=== PATIENT | female | born 1965 | race Caucasian/White ===

== ENCOUNTER 2020-09-23 14:03 | Inpatient (IN) | payer BC ==
--- NOTE | 2020-09-23 14:05 | EDM.PDOC ---
ED HPI GENERAL MEDICAL PROBLEM - General Chief Complaint: Cardiovascular Problem Stated Complaint: N/V,DIARRHEA Time Seen by Provider: 09/23/20 14:05 Source of Information: Reports: Patient, Family, Provider History Limitations: Reports: No Limitations - History of Present Illness INITIAL COMMENTS - FREE TEXT/NARRATIVE: Lidia, 54-year-old female, presents per private vehicle to the emergency department today accompanied by her daughter. Lidia was initially seen at the [facility] here in [place] by Kavita Suarez shortly prior to the arrival at the emergency department. Negative Covid test was obtained secondary of her symptoms. As Kavita entered the room for assessment recognized significant concerns for dehydration, hypotension, associated pallor and felt further work-up necessitated at the emergency department including fluid hydration. Pain he agreed to this and was transported by private vehicle with her daughter driving. Her symptoms developed on the leading to Sunday the and lasting until 21 September which included weakness, nausea with vomiting limiting her oral medication intake. This was also associated with diarrhea. She states there has been no vomiting since yesterday and abdominal discomfort has improved significantly but had what was seemingly a periumbilical region discomfort during the nausea and emesis, as well as diarrhea. She denies any nausea at this time with mild headache and chronic stiff neck which is not worse than usual. She denies any previous renal concerns. 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 (see below) (all home meds, but limited secondary of nause/vomiting) Right Abdomen Pain Score (Numeric/FACES): 4 - Related Data Allergies Allergy/AdvReac Type Severity Reaction Status Date / Time amoxicillin trihydrate Allergy Cannot Verified 09/23/20 14:14 [From Augmentin] Remember potassium clavulanate Allergy Cannot Verified 09/23/20 14:14 [From Augmentin] Remember Home Meds: Home Meds Escitalopram Oxalate 20 mg PO DAILY 11/15/17 [History] Pentosan Polysulfate Sodium [Elmiron] 100 mg PO TID 11/15/17 [History] amLODIPine Besylate [Amlodipine Besylate] 5 mg PO DAILY 11/15/17 [History] Baclofen 10 mg PO TID PRN 09/23/20 [History] Calcium Carbonate [Calcium] 600 mg PO BIDMEALS 09/23/20 [History] Cranberry 400 mg PO BID 09/23/20 [History] Cyanocobalamin (Vitamin B-12) [B-12] 1,000 mg PO DAILY 09/23/20 [History] Ergocalciferol (Vitamin D2) [Vitamin D2] 50,000 unit PO ASDIRECTED 09/23/20 [History] Esomeprazole [NexIUM] 20 mg PO DAILY 09/23/20 [History] Iron Polysaccharides Complex [Ferrex 150] 1 cap PO Q48H 09/23/20 [History] Levothyroxine Sodium [Levothyroxine] 137 mcg PO DAILY 09/23/20 [History] Lisinopril/Hydrochlorothiazide [Zestoretic 10-12.5 mg Tablet] 1 each PO BID 09/23/20 [History] buPROPion HCL [Wellbutrin Xl] 1 tab PO DAILY 09/23/20 [History] busPIRone [Buspar] 10 mg PO DAILY PRN 09/23/20 [History] hydrOXYzine HCL [Atarax] 25 mg PO QID PRN 09/23/20 [History] Past Medical History HEENT History: Reports: Impaired Vision Cardiovascular History: Reports: Heart Murmur, Hypertension Respiratory History: Reports: Other (See Below) (chronic low oxygen saturations) Gastrointestinal History: Reports: Other (See Below) (gastric bypass) Genitourinary History: Reports: UTI, Recurrent, Other (See Below) (chronic interstitial cystitis) 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: Musculoskeletal History: Reports: Back Pain, Chronic, Fibromyalgia Psychiatric History: Reports: Anxiety, Depression Endocrine/Metabolic History: Reports: Hypothyroidism Hematologic History: Reports: Anemia, B12 Deficiency Immunologic History: Reports: None - Past Surgical History HEENT Surgical History: Reports: Tonsillectomy GI Surgical History: Reports: Bariatric Procedure, Cholecystectomy, Other (See Below) Other GI Surgeries/Procedures: Gastric Bypass Female Surgical History: Reports: Breast Reduction, Tubal Ligation Musculoskeletal Surgical History: Reports: Other (See Below) Other Musculoskeletal Surgeries/Procedures:: Back surgery - Past Imaging History Past Imaging History: Reports: Xray Social & Family History - Family History Family Medical History: No Pertinent Family History - Tobacco Use Tobacco Use Within Last Twelve Months: No ED ROS GENERAL - Review of Systems Review Of Systems: Comprehensive ROS is negative, except as noted in HPI. ED EXAM, GENERAL - Physical Exam Exam: See Below Free Text/Narrative:: Alert, oriented, in mild distress. There is noted pallor with cool distal extremities both upper and lower. Poor saturation levels are achieved likely due to contributing factors including cold extremity. From wrist distally fingers and hand are cold bilateral with a adequate radial pulse. There is cool feet from the ankle/distal tib-fib into the feet with pulse faint but present. HEENT is negative discharge or deformity, PERRLA no icterus no injection, moist mucous membranes. Neck is tender to the muscular paraspinal region which she states is chronic in nature. I do not appreciate any carotid bruit. Thorax is overall clear with no wheezes nor crackles. Cardiac S1-S2 with a grade 2 systolic murmur best heard at the base and nonradiating. Abdomen has bowel sounds present with no specific tenderness or rebound tenderness to palpation. No flank pain. No pelvic pain to compression nor pain pressure over urinary bladder. Right lower extremity is cool distally with appropriate color and faint pulse no tenderness is noted. Left lower extremity has mildly tenderness to the calf and is cool distally with appropriate color and faint pulse, no noted swelling. #1 Interpretation EKG Date: 09/23/20 Time: 14:25 Rhythm: NSR Rate (Beats/Min): 100 [place]: Normal P-Wave: Present QRS: Normal ST-T: Normal QT: Normal Comparison: NA - No Prior EKG EKG Interpretation Comments: [facility] [id number] Failure to allow comparison. Course - Vital Signs Last Recorded V/S: Last Vital Signs Temp 97.1 F 09/23/20 14:05 Pulse 97 09/23/20 17:48 Resp 18 09/23/20 17:48 BP 118/65 09/23/20 17:48 Pulse Ox 97 09/23/20 17:48 - Orders/Labs/Meds Orders: Active Orders 24 hr Category Date Time Status Admission Status [Patient Status] [ADT] Routine ADT 09/23/20 18:57 Ordered Peripheral IV Care [RC] . DIRECTED Care 09/23/20 14:13 Active CULTURE URINE [RM] Urgent Lab 09/23/20 15:18 Received Ciprofloxacin in D5W [Cipro in D5W 400 MG/200 ML] 400 Med 09/23/20 18:37 Ordered mg Premix Bag 1 bag IV ONETIME Potassium Chloride [KCL in Water 20 MEQ/100 ML] 20 meq Med 09/23/20 18:04 Active Premix Bag 1 bag IV ONETIME Sodium Chloride 0.9% [Normal Saline] 1,000 ml Med 09/23/20 15:45 Active IV ASDIRECTED Sodium Chloride 0.9% [Saline Flush] Med 09/23/20 14:13 Active 10 ml FLUSH Q8HR PRN Peripheral IV Insertion Adult [OM.PC] Routine Oth 09/23/20 14:13 Ordered Code Status [Resuscitation Status] Stat Resus Stat 09/23/20 19:06 Ordered EKG 12 Lead [EK] Urgent Ther 09/23/20 14:11 Stop Req Medication Orders Sodium Chloride (Normal Saline) 1,000 mls @ 250 mls/hr IV ASDIRECTED [facility] Last Admin: 09/23/20 16:00 Dose: 250 mls/hr Documented by: BLAINE Potassium Chloride 20 meq/ (Premix) 100 mls @ 50 mls/hr IV ONETIME ONE Stop: 09/23/20 20:03 Last Admin: 09/23/20 18:10 Dose: 50 mls/hr Documented by: BLAINE Ciprofloxacin/Dextrose 400 mg/ (Premix) 200 mls @ 200 mls/hr IV ONETIME ONE Stop: 09/23/20 19:36 Sodium Chloride (Sodium Chloride 0.9% 10 Ml Syringe) 10 ml FLUSH Q8HR PRN PRN Reason: keep vein open Last Admin: 09/23/20 16:35 Dose: 10 ml Documented by: Admin: 09/23/20 14:57 Dose: 10 ml Documented by: BLAINE Labs: Laboratory Tests 09/23/20 09/23/20 09/23/20 Range/Units 14:10 14:10 14:10 WBC 24.59 H (5.00-10.00) 10^3/uL RBC 3.04 L (3.80-5.50) 10^6/uL Hgb 9.8 L (12.0-16.0) g/dL Hct 28.3 L (37.0-47.0) % MCV 93.1 H (82.0-92.0) fL MCH 32.2 H (27.0-31.0) pg MCHC 34.6 (32.0-36.0) g/dL RDW 14.4 (11.5-14.5) % Plt Count 434 H (150-400) 10^3/uL MPV 9.2 (7.4-10.4) fL Add Manual Diff Yes Neutrophils % (Manual) 87 H (50-70) % Band Neutrophils % 1 L (4-12) % Lymphocytes % (Manual) 1 L (20-40) % Monocytes % (Manual) 11 H (2-8) % Absolute Neutrophils 21.6392 Lymphocytes # (Manual) 0.2459 Monocytes # (Manual) 2.7049 Nucleated RBCs 1 D-Dimer, Quantitative 3410 H (<400) ng/mL Sodium 136 (136-145) mmol/L Potassium 2.1 L* (3.5-5.1) mmol/L Chloride 100 (98-107) mmol/L Carbon Dioxide 17.8 L (21.0-32.0) mmol/L Anion Gap 20.3 H (5-15) mmol/L BUN 23 H (7-18) mg/dL Creatinine 1.32 H (0.51-1.17) mg/dL Est Cr Clr Drug Dosing 38.50 mL/min Estimated GFR (MDRD) 42 mL/min Glucose 94 (70-140) mg/dL Lactic Acid (0.4-2.0) mmol/L Calcium 8.9 (8.7-10.3) mg/dL Total Bilirubin 0.6 (0.2-1.0) mg/dL AST 14 L (15-37) U/L ALT 14 (14-63) U/L Alkaline Phosphatase 99 (46-116) U/L Troponin I < 0.017 (0.000-0.056) ng/mL Total Protein 7.1 (6.4-8.2) g/dL Albumin 2.42 L (3.40-5.00) g/dL Amylase 54 (25-125) U/L Lipase 187 (73-393) U/L Specimen Type Urine Color Urine Appearance Urine pH Ur Specific [place] Urine Protein Urine Glucose (UA) Urine Ketones Urine Occult Blood Urine Nitrite Urine Bilirubin Urine Urobilinogen Ur Leukocyte Esterase U Hyaline Cast (Auto) Urine RBC Urine WBC Ur Epithelial Cells Other Crystals Amorphous Sediment Urine Bacteria Granular Casts (Auto) Urine Mucus Urine Other Urine Trichomonas Urine Yeast Urinalysis Comment 09/23/20 09/23/20 09/23/20 Range/Units 14:10 15:18 15:18 WBC (5.00-10.00) 10^3/uL RBC (3.80-5.50) 10^6/uL Hgb (12.0-16.0) g/dL Hct (37.0-47.0) % MCV (82.0-92.0) fL MCH (27.0-31.0) pg MCHC (32.0-36.0) g/dL RDW (11.5-14.5) % Plt Count (150-400) 10^3/uL MPV (7.4-10.4) fL Add Manual Diff Neutrophils % (Manual) (50-70) % Band Neutrophils % (4-12) % Lymphocytes % (Manual) (20-40) % Monocytes % (Manual) (2-8) % Absolute Neutrophils Lymphocytes # (Manual) Monocytes # (Manual) Nucleated RBCs D-Dimer, Quantitative (<400) ng/mL Sodium (136-145) mmol/L Potassium (3.5-5.1) mmol/L Chloride (98-107) mmol/L Carbon Dioxide (21.0-32.0) mmol/L Anion Gap (5-15) mmol/L BUN (7-18) mg/dL Creatinine (0.51-1.17) mg/dL Est Cr Clr Drug Dosing mL/min Estimated GFR (MDRD) mL/min Glucose (70-140) mg/dL Lactic Acid 1.6 (0.4-2.0) mmol/L Calcium (8.7-10.3) mg/dL Total Bilirubin (0.2-1.0) mg/dL AST (15-37) U/L ALT (14-63) U/L Alkaline Phosphatase (46-116) U/L Troponin I (0.000-0.056) ng/mL Total Protein (6.4-8.2) g/dL Albumin (3.40-5.00) g/dL Amylase (25-125) U/L Lipase (73-393) U/L Specimen Type Cancelled Urinvoid Urine Color Cancelled Ellis H Urine Appearance Cancelled Slightly cloudy H Urine pH Cancelled 6.0 Ur Specific [place] Cancelled 1.010 Urine Protein Cancelled 100 H Urine Glucose (UA) Cancelled 100 H Urine Ketones Cancelled Trace H Urine Occult Blood Cancelled Small H Urine Nitrite Cancelled Positive H Urine Bilirubin Cancelled Small H Urine Urobilinogen Cancelled 1.0 Ur Leukocyte Esterase Cancelled Small H U Hyaline Cast (Auto) Cancelled Urine RBC Cancelled 0-5 Urine WBC Cancelled >100 H Ur Epithelial Cells Cancelled Occasional Other Crystals Cancelled Amorphous Sediment Cancelled Urine Bacteria Cancelled Rare Granular Casts (Auto) Cancelled Urine Mucus Cancelled Urine Other Cancelled Urine Trichomonas Cancelled Urine Yeast Cancelled Urinalysis Comment Cancelled Meds: Medications Generic Name Dose Route Start Last Admin Trade Name Freq PRN Reason Stop Dose Admin Sodium Chloride 1,000 mls @ 250 mls/hr 09/23/20 15:45 09/23/20 16:00 Normal Saline IV 250 mls/hr ASDIRECTED YAW Administration Potassium Chloride 20 meq/ 100 mls @ 50 mls/hr 09/23/20 18:04 09/23/20 18:10 Premix IV 09/23/20 20:03 50 mls/hr ONETIME ONE Administration Ciprofloxacin/Dextrose 400 mg/ 200 mls @ 200 mls/hr 09/23/20 18:37 Premix IV 09/23/20 19:36 ONETIME ONE Sodium Chloride 10 ml 09/23/20 14:13 09/23/20 16:35 Sodium Chloride 0.9% 10 Ml Syringe FLUSH 10 ml Q8HR PRN Administration keep vein open Discontinued Medications Generic Name Dose Route Start Last Admin Trade Name Freq PRN Reason Stop Dose Admin Diatrizoate Meglum/Diatrizoate Sod 30 ml 09/23/20 17:12 09/23/20 18:09 Diatrizoate Meglumine/Diatrizoate Sodium 37% 30 Ml Bottle PO 09/23/20 17:13 30 ml ONETIME ONE Administration Sodium Chloride 1,000 mls @ 999 mls/hr 09/23/20 14:13 09/23/20 14:10 Normal Saline IV 09/23/20 15:13 999 mls/hr .BOLUS ONE Administration Potassium Chloride 20 meq/ 100 mls @ 50 mls/hr 09/23/20 14:52 09/23/20 15:02 Premix IV 09/23/20 16:51 50 mls/hr ONETIME ONE Administration Sodium Chloride 100 mls @ 200 mls/hr 09/23/20 15:45 09/23/20 17:09 Normal Saline IV 200 mls/hr ASDIRECTED YAW Administration Sodium Chloride 50 mls @ 200 mls/hr 09/23/20 17:15 09/23/20 18:09 Normal Saline IV 200 mls/hr ASDIRECTED YAW Administration Iopamidol 75 ml 09/23/20 15:42 09/23/20 17:09 Iopamidol 755 Mg/Ml 75 Ml Bottle IVPUSH 09/23/20 15:43 75 ml ONETIME ONE Administration Iopamidol 75 ml 09/23/20 17:12 09/23/20 18:09 Iopamidol 755 Mg/Ml 75 Ml Bottle IVPUSH 09/23/20 17:13 75 ml ONETIME ONE Administration Ketorolac Tromethamine 30 mg 09/23/20 14:54 09/23/20 14:56 Ketorolac 30 Mg/Ml Sdv IVPUSH 09/23/20 14:55 30 mg ONETIME ONE Administration Ketorolac Tromethamine Confirm 09/23/20 14:55 09/23/20 15:06 Ketorolac 30 Mg/Ml Sdv Administered 09/23/20 14:56 Not Given Dose 30 mg .ROUTE .STK-MED ONE Ondansetron HCl 8 mg 09/23/20 16:25 09/23/20 16:28 Ondansetron 4 Mg/2 Ml Sdv IVPUSH 09/23/20 16:26 8 mg ONETIME ONE Administration - Re-Assessments/Exams Free Text/Narrative Re-Assessment/Exam: 09/23/20 15:15 Significant improvement in color and heart rate coming down into the 90s after two thirds of the fluid bolus was given. We did discuss at that time elevated D-dimer with a white count elevated but no evidence on chest x-ray. I feel part of her white count elevation is hydration concentration status. Possibility with elevated D-dimer of pulmonary embolus contributing to this significant murmur today which she states had been discussed in the past but was proven to not exist. 09/23/20 15:46 Feeling better with improvement stabilized in color heart rate 90s blood pressure now in the 113/73 saturations maintaining 94% with a respiratory rate of 12 and nonlabored. Chest x-ray returns with no acute process. Awaiting report on CTA Free Text/Narrative Re-Assessment/Exam: 09/23/20 18:[address] findings for acute pyelonephritis with no evidence of obstruction or other complications. Will initiate antibiotic therapy and contact [facility] provider for admission status. 09/23/20 19:06 Discussion with Arie Knight nurse practitioner on-call for admission. Agrees to observation status for the aforementioned diagnosis of hypokalemia due to potassium loss likely due to her diarrhea, pyelonephritis with leukocytosis. Departure - Departure Time of Disposition: 19:10 Disposition: Refer to Observation Condition: Good Clinical Impression: Murmur, heart, Hypokalemia, Leukocytosis, Elevated d-dimer, Pyelonephritis Anemia Qualifiers: Anemia type: iron deficiency Iron deficiency anemia type: unspecified iron deficiency Qualified Code(s): D50.9 - Iron deficiency anemia, unspecified Calf pain Qualifiers: Laterality: left Qualified Code(s): M79.662 - Pain in left lower leg - Discharge Information *PRESCRIPTION DRUG MONITORING PROGRAM REVIEWED*: Not Applicable *COPY OF PRESCRIPTION DRUG MONITORING REPORT IN PATIENT YANI: Not Applicable Referrals: Cony Tamayo [employer]IO ELECTRONICS OFFICER [Primary Care Provider] - Kavita Suarez NP [Nurse Practitioner] - Forms: ED Department Discharge Additional Instructions: observation status with antibiotic and potassium recheck. Sepsis Event Note (ED) - Focused Exam Vital Signs: Vital Signs Temp Pulse Resp BP Pulse Ox 09/23/20 17:48 97 18 118/65 97 09/23/20 16:48 94 18 112/78 92 L 09/23/20 16:18 90 18 106/70 97 09/23/20 15:59 91 16 113/73 92 L 09/23/20 15:44 91 18 107/75 87 L 09/23/20 15:18 119/75 09/23/20 14:45 96 20 105/66 09/23/20 14:39 97 20 93/67 99 09/23/20 14:32 96 16 91/60 94 L 09/23/20 14:15 100 16 83/59 L 96 09/23/20 14:08 102 H 18 93/60 91 L 09/23/20 14:05 97.1 F 109 H 20 82/60 L 80 L ED Communication - ED Communication Date/Time Date: 09/23/20 Time Called: 19:00 - Discussed Case With (1) Discussed Case With (1): Admitting Provider Person/s Notified (1): Cony tamayo - Problem List & Annotations (1) Weakness SNOMED Code(s): 75919182 Code(s): R53.1 - WEAKNESS Status: Acute Priority: High Current Visit: Yes (2) Hypotensive episode SNOMED Code(s): 97358620 Code(s): I95.9 - HYPOTENSION, UNSPECIFIED Status: Acute Priority: High Current Visit: Yes (3) Oxygen desaturation SNOMED Code(s): 340553270 Code(s): R09.02 - HYPOXEMIA Status: Chronic Priority: Medium Current Visit: Yes Annotation/Comment:: Both Lidia and her daughter relate to chronic low pulse oximetry readings, typically low 90s would be average (4) Calf pain SNOMED Code(s): 912526764 Code(s): M79.669 - PAIN IN UNSPECIFIED LOWER LEG Status: Acute Priority: High Current Visit: Yes Qualifiers: Laterality: left Qualified Code(s): M79.662 - Pain in left lower leg (5) Hypokalemia SNOMED Code(s): 80938428 Code(s): E87.6 - HYPOKALEMIA Status: Acute Priority: High Current Visit: Yes (6) Leukocytosis SNOMED Code(s): 556996704, 621839951 Code(s): D72.829 - ELEVATED WHITE BLOOD CELL COUNT, UNSPECIFIED Status: Acute Current Visit: Yes (7) Elevated d-dimer SNOMED Code(s): 131477876 Code(s): R79.89 - OTHER SPECIFIED ABNORMAL FINDINGS OF BLOOD CHEMISTRY Status: Acute Priority: High Current Visit: Yes (8) Anemia SNOMED Code(s): 403570787 Code(s): D64.9 - ANEMIA, UNSPECIFIED Status: Chronic Priority: Medium Current Visit: Yes Qualifiers: Anemia type: iron deficiency Iron deficiency anemia type: unspecified iron deficiency Qualified Code(s): D50.9 - Iron deficiency anemia, unspecified (9) Murmur, heart SNOMED Code(s): 67082566 Code(s): R01.1 - CARDIAC MURMUR, UNSPECIFIED Status: Acute Current Visit: Yes (10) Pyelonephritis SNOMED Code(s): 76712866 Code(s): N12 - TUBULO-INTERSTITIAL NEPHRITIS, NOT SPCF ACUTE OR CHRONIC Status: Acute Priority: High Current Visit: Yes Annotation/Comment:: non- obstructive with no flank pain, significant WBC elevation. (11) Lab test negative for COVID-19 virus SNOMED Code(s): 7487660660975734 Code(s): Z20.822 - CONTACT WITH AND (SUSPECTED) EXPOSURE TO COVID-19 Status: Acute Current Visit: Yes - Problem List Review Problem List Initiated/Reviewed/Updated: Yes - My Orders Last 24 Hours: My Active Orders 09/23/20 14:11 EKG 12 Lead [EK] Urgent 09/23/20 14:13 Peripheral IV Care [RC] . DIRECTED Sodium Chloride 0.9% [Saline Flush] 10 ml FLUSH Q8HR PRN Peripheral IV Insertion Adult [OM.PC] Routine 09/23/20 15:18 CULTURE URINE [RM] Urgent 09/23/20 15:45 Sodium Chloride 0.9% [Normal Saline] 1,000 ml IV ASDIRECTED 09/23/20 18:04 Potassium Chloride [KCL in Water 20 MEQ/100 ML] 20 meq Premix Bag 1 bag IV ONETIME 09/23/20 18:37 Ciprofloxacin in D5W [Cipro in D5W 400 MG/200 ML] 400 mg Premix Bag 1 bag IV ONETIME 09/23/20 18:57 Admission Status [Patient Status] [ADT] Routine 09/23/20 19:06 Code Status [Resuscitation Status] Stat - Assessment/Plan Last 24 Hours: My Active Orders 09/23/20 14:11 EKG 12 Lead [EK] Urgent 09/23/20 14:13 Peripheral IV Care [RC] . DIRECTED Sodium Chloride 0.9% [Saline Flush] 10 ml FLUSH Q8HR PRN Peripheral IV Insertion Adult [OM.PC] Routine 09/23/20 15:18 CULTURE URINE [RM] Urgent 09/23/20 15:45 Sodium Chloride 0.9% [Normal Saline] 1,000 ml IV ASDIRECTED 09/23/20 18:04 Potassium Chloride [KCL in Water 20 MEQ/100 ML] 20 meq Premix Bag 1 bag IV ONETIME 09/23/20 18:37 Ciprofloxacin in D5W [Cipro in D5W 400 MG/200 ML] 400 mg Premix Bag 1 bag IV ONETIME 09/23/20 18:57 Admission Status [Patient Status] [ADT] Routine 09/23/20 19:06 Code Status [Resuscitation Status] Stat Plan: observation status with antibiotic and potassium recheck.
[2020-09-23] MEDS ORDERED: Sodium Chloride 0.9% 1,000 ML IV ONE (14:13)
[2020-09-23 14:45] LABS: ANION GAP 20.3 mmol/L (5-15); CHLORIDE,CL 100 mmol/L (98-107); SODIUM,NA 136 mmol/L (136-145)
[2020-09-23] MEDS ORDERED: Potassium Chloride 20 MEQ in Premix Bag 1 BAG IV ONE ×2 (14:52→18:04)
[2020-09-23] MEDS ORDERED: Ketorolac 30 MG/ML SDV IVPUSH ONE (14:54)
[2020-09-23] MEDS ORDERED: Ketorolac 30 MG/ML SDV ONE (14:55)
[2020-09-23] MEDS: Sodium Chloride 0.9% 10 ML Syringe FLUSH PRN ×2 (14:57→16:35)
[2020-09-23] MEDS ORDERED: Iopamidol 755 Mg/ML 75 ML Bottle IVPUSH ONE ×2 (15:42→17:12)
--- NOTE | 2020-09-23 15:42 | CR ---
[id number] RAD/RAD Chest PA or AP 1V EXAM: SINGLE VIEW CHEST. INDICATION: WEAKNESS DESATURATION COMPARISON: NO PREVIOUS SIMILAR EXAM IS AVAILABLE FINDINGS: The lungs are clear The cardiomediastinal contour is within normal limits The regional bones and soft tissues are unremarkable IMPRESSION: NO ACUTE PROCESS Cory Borrero MD 09/23/20 [id number] Thank you for allowing us to participate in the care of your patient.
[2020-09-23] MEDS ORDERED: Sodium Chloride 0.9% 100 ML IV SCH (15:45)
[2020-09-23] MEDS: Sodium Chloride 0.9% 1,000 ML IV SCH ×2 (16:00→22:05)
--- NOTE | 2020-09-23 16:03 | CT ---
[id number] CT/CTA Chest . Exam: CTA Chest Clinical Data: ELEVATED D-DIMER LOW OXYGEN SATURATION COMPARISON: CORRELATION IS MADE WITH THE CURRENT PLAIN FILM FINDINGS: There are no pulmonary emboli Slight prominence of the ascending thoracic aorta is seen There are no joint effusions There is no atelectasis There is no adrenal mass There are surgical changes of the GE junction IMPRESSION: NO PULMONARY EMBOLI Cory Borrero MD 09/23/20 [id number] Thank you for allowing us to participate in the care of your patient.
[2020-09-23] MEDS ORDERED: Ondansetron 4 MG/2 ML SDV IVPUSH ONE (16:25)
[2020-09-23] MEDS ORDERED: Diatrizoate Meglumine/Diatrizoate Sodium 37% 30 ML Bottle PO ONE (17:12)
[2020-09-23] MEDS ORDERED: Sodium Chloride 0.9% 50 ML IV SCH (17:15)
--- NOTE | 2020-09-23 18:07 | CT ---
[id number] CT/CT Abdomen Pelvis W IV EXAM: ABDOMEN AND PELVIS CT WITH CONTRAST INDICATION: ABDOMEN PAIN, ELEVATED WBC/D DIMER. COMPARISON: July 23, 2015. DISCUSSION: The right kidney is enlarged with wedge-shaped areas of hypoenhancement hyperenhancement consistent with acute pyelonephritis. No obstruction is identified. Evaluation for small ureteral calculi is limited by the presence of intravenous contrast agent in the collecting system from the earlier CT angiogram chest. No ureteral dilation. Small sliding type hiatus hernia and sequela of prior gastric procedure. Cholecystectomy with mild chronic biliary duct ectasia. Prior discectomy with interbody graft placement, posterior decompression and fusion at the L4-L5 level. The pancreas, spleen, adrenal glands, left kidney, small bowel, large bowel, and the appendix are unremarkable. No adenopathy, free air free fluid. IMPRESSION: 1. Acute pyelonephritis of the right kidney without evidence of obstruction or other complication. Anastacio Potter MD 09/23/20 [id number] Thank you for allowing us to participate in the care of your patient.
[2020-09-23] MEDS ORDERED: Ciprofloxacin in D5W 400 MG in Premix Bag 1 BAG IV ONE ×2 (18:37)
[2020-09-23] MEDS: Acetaminophen 325 MG Tab PO PRN (20:12)
[2020-09-23] MEDS ORDERED: hydrOXYzine HCl 25 MG Tab PO PRN (20:29)
[2020-09-23] MEDS ORDERED: busPIRone 10 MG Tab PO PRN (20:40)
[2020-09-23] MEDS: Enoxaparin 60 MG/0.6 ML Syringe SUBCUT SCH (20:50)
[2020-09-23] MEDS: Potassium Chloride 20 MEQ in Premix Bag 1 BAG IV SCH (23:11)
[2020-09-23] MEDS: Magnesium Oxide 500 MG Tab PO SCH (23:11)
[2020-09-24] MEDS: Potassium Chloride 20 MEQ in Premix Bag 1 BAG IV SCH ×2 (01:18→03:39)
[2020-09-24] MEDS: Acetaminophen 325 MG Tab PO PRN ×3 (03:39→21:38)
[2020-09-24] MEDS: Sodium Chloride 0.9% 1,000 ML IV SCH ×2 (05:11→14:53)
[2020-09-24] MEDS: Omeprazole 20 MG Cap.CR PO SCH (06:30)
[2020-09-24] MEDS: Levothyroxine 112 MCG Tab PO SCH (06:30)
[2020-09-24] MEDS: Levothyroxine 25 MCG Tab PO SCH (06:31)
[2020-09-24] MEDS: Ciprofloxacin in D5W 400 MG in Premix Bag 1 BAG IV SCH ×4 (07:40→21:39)
[2020-09-24] MEDS ORDERED: Iron Polysaccharides Complex 150 MG Cap PO SCH (08:00)
[2020-09-24] MEDS: Magnesium Oxide 500 MG Tab PO SCH (08:49)
[2020-09-24] MEDS: Escitalopram 10 MG Tab PO SCH (08:49)
[2020-09-24] MEDS: Calcium Carbonate 600 MG Tab PO SCH ×2 (08:49→17:21)
[2020-09-24] MEDS: Cyanocobalamin (Vitamin B12) 500 MCG Tab PO SCH (08:50)
[2020-09-24] MEDS: buPROPion 150 MG Tab.ER PO SCH (08:50)
[2020-09-24] MEDS: Enoxaparin 60 MG/0.6 ML Syringe SUBCUT SCH (08:50)
[2020-09-24 10:19] LABS: ANION GAP 19.4 mmol/L (5-15)
--- NOTE | 2020-09-24 10:36 | PCM.HP.2 ---
H&P History of Present Illness - General Date of Service: 09/24/20 Admit Problem/Dx: Admission Diagnosis/Problem Admission Diagnosis/Problem Pyelonephritis Right Abdomen Pain Score (Numeric/FACES): 2 Headache Pain Score (Numeric/FACES): 3 - Related Data Allergies/Adverse Reactions: Allergies Allergy/AdvReac Type Severity Reaction Status Date / Time amoxicillin trihydrate Allergy Cannot Verified 09/23/20 14:14 [From Augmentin] Remember potassium clavulanate Allergy Cannot Verified 09/23/20 14:14 [From Augmentin] Remember Home Medications: Home Meds Escitalopram Oxalate 20 mg PO DAILY 11/15/17 [History] Calcium Carbonate [Calcium] 600 mg PO BIDMEALS 09/23/20 [History] Cyanocobalamin (Vitamin B-12) [B-12] 1,000 mg PO DAILY 09/23/20 [History] Iron Polysaccharides Complex [Ferrex 150] 1 cap PO Q48H 09/23/20 [History] buPROPion HCL [Wellbutrin Xl] 1 tab PO DAILY 09/23/20 [History] busPIRone [Buspar] 10 mg PO DAILY PRN 09/23/20 [History] hydrOXYzine HCL [hydrOXYzine] 25 mg PO QID PRN 09/23/20 [History] Acetaminophen [Tylenol] 650 mg PO Q6H PRN tablet 09/25/20 [Rx] Atropine [Atropine 0.1 MG/ML] 0 mg IVPUSH ASDIRECTED PRN syringe 09/25/20 [Rx] Ciprofloxacin in D5W [Ciprofloxacin-D5W] 400 mg IV Q12H bag 09/25/20 [Rx] EPINEPHrine [EPINEPHrine 1:10,000] 1 mg IVPUSH ASDIRECTED PRN syringe 09/25/20 [Rx] Enoxaparin [Lovenox] 40 mg SUBCUT Q24H syringe 09/25/20 [Rx] Levothyroxine 25 mcg PO ACBREAKFAST tablet 09/25/20 [Rx] Levothyroxine 112 mcg PO ACBREAKFAST tablet 09/25/20 [Rx] Lidocaine 2% [Xylocaine 2%] 0 mg IVPUSH ASDIRECTED PRN syringe 09/25/20 [Rx] Magnesium Oxide 500 mg PO DAILY tablet 09/25/20 [Rx] Nitroglycerin [Nitrostat] 0.4 mg SL ASDIRECTED PRN tab.sl 09/25/20 [Rx] Omeprazole 20 mg PO ACBREAKFAST cap.cr 09/25/20 [Rx] Phenazopyridine [Pyridium] 100 mg PO TID PRN tablet 09/25/20 [Rx] Phosphorus #1 [Neutra-Phos] 250 mg PO QID tablet 09/25/20 [Rx] Premix Bag 200 bag IV Q12H bag 09/25/20 [Rx] Sodium Chloride 0.9% [Normal Saline] 150 ml IV ASDIRECTED bag 09/25/20 [Rx] Sodium Chloride 0.9% [Saline Flush] 10 ml FLUSH Q8HR PRN syringe 09/25/20 [Rx] Past Medical History HEENT History: Reports: Impaired Vision Cardiovascular History: Reports: Heart Murmur, Hypertension Respiratory History: Reports: Other (See Below) (chronic low oxygen saturations) Gastrointestinal History: Reports: Other (See Below) (gastric bypass) Genitourinary History: Reports: UTI, Recurrent 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: Musculoskeletal History: Reports: Back Pain, Chronic, Fibromyalgia Psychiatric History: Reports: Anxiety, Depression Endocrine/Metabolic History: Reports: Hypothyroidism Hematologic History: Reports: Anemia, B12 Deficiency Immunologic History: Reports: None - Infectious Disease History Infectious Disease History: Reports: None - Past Surgical History HEENT Surgical History: Reports: Tonsillectomy GI Surgical History: Reports: Bariatric Procedure, Cholecystectomy, Other (See Below) Other GI Surgeries/Procedures: Gastric Bypass Female Surgical History: Reports: Breast Reduction, Tubal Ligation Musculoskeletal Surgical History: Reports: Other (See Below) Other Musculoskeletal Surgeries/Procedures:: Back surgery - Past Imaging History Past Imaging History: Reports: Xray Social & Family History - Family History Family Medical History: No Pertinent Family History - Tobacco Use Tobacco Use Status *Q: Never Tobacco User - Caffeine Use Caffeine Use: Reports: None - Recreational Drug Use Recreational Drug Use: No H&P Review of Systems - Review of Systems: Review Of Systems: See Below General: Reports: Weakness, Fatigue, Decreased Appetite. Denies: Fever, Chills HEENT: Reports: Headaches (chronic migraines). Denies: Sinus Congestion, Sore Throat Pulmonary: Reports: No Symptoms Cardiovascular: Reports: No Symptoms. Denies: Chest Pain, Palpitations, Edema, Syncope Gastrointestinal: Reports: Diarrhea (three stools today ). Denies: Nausea, Vomiting Genitourinary: Reports: Dysuria, Frequency, Urgency, Incontinence, Flank Pain Musculoskeletal: Reports: Neck Pain Skin: Reports: No Symptoms Psychiatric: Reports: No Symptoms Neurological: Reports: Other (feels "foggy"). Denies: Syncope Hematologic/Lymphatic: Reports: Anemia Immunologic: Reports: No Symptoms Exam - Exam Exam: See Below - Vital Signs Vital Signs: Last Vital Signs Temp 98.3 F 09/24/20 06:41 Pulse 87 09/24/20 06:41 Resp 16 09/24/20 06:41 BP 99/62 09/24/20 06:41 Pulse Ox 91 L 09/24/20 06:41 Weight: 147 lb 1 oz - Exam Quality Assessment: Supplemental Oxygen (PRN), DVT Prophylaxis (lovenox; eleva xena D-dimer) General: Alert, Oriented, Cooperative HEENT: Conjunctiva Clear, Mucosa Moist & [place] Neck: Supple, Trachea Midline Lungs: Clear to Auscultation, Normal Respiratory Effort. No: Decreased Breath Sounds Cardiovascular: Regular Rate, Regular Rhythm. No: Systolic Murmur, Diastolic Murmur GI/Abdominal Exam: Normal Bowel Sounds, Soft, Non-Tender, No Distention (Female) Exam: Deferred Rectal (Female) Exam: Deferred Extremities: Normal Inspection, Normal Range of Motion, Non-Tender, No Pedal Edema. No: Leg Pain, Increased Warmth, Redness Peripheral Pulses: 2+: Dorsalis Pedis (L), Dorsalis Pedis (R) Skin: Warm, Dry, Intact Neurological: Normal Speech. No: Focal Deficit Neuro Extensive - Mental Status: Alert, Oriented x3, Normal Mood/Affect Neuro Extensive - Motor, Sensory, Reflexes: Normal Gait Psychiatric: Alert, Normal Affect, Normal Mood - Patient Data Lab Results Last 24 hrs: Laboratory Results - last 24 hr 09/23/20 09/23/20 09/23/20 Range/Units 14:10 14:10 14:10 WBC 24.59 H (5.00-10.00) 10^3/uL RBC 3.04 L (3.80-5.50) 10^6/uL Hgb 9.8 L (12.0-16.0) g/dL Hct 28.3 L (37.0-47.0) % MCV 93.1 H (82.0-92.0) fL MCH 32.2 H (27.0-31.0) pg MCHC 34.6 (32.0-36.0) g/dL RDW 14.4 (11.5-14.5) % Plt Count 434 H (150-400) 10^3/uL MPV 9.2 (7.4-10.4) fL Immature Gran % (Auto) (0.0-5.0) % Neut % (Auto) (50.0-70.0) % Lymph % (Auto) (20.0-40.0) % [place] % (Auto) (2.0-8.0) % Eos % (Auto) (1.0-3.0) % Baso % (Auto) (0.0-1.0) % Neut # (Auto) (2.50-7.00) 10^3/uL Lymph # (Auto) (1.00-4.00) 10^3/uL [place] # (Auto) (0.10-0.80) 10^3/uL Eos # (Auto) (0.10-0.30) 10^3/uL Baso # (Auto) (0.00-0.10) 10^3/uL Immature Gran # (Auto) (0.00-0.50) 10^3/uL Add Manual Diff Yes Neutrophils % (Manual) 87 H (50-70) % Band Neutrophils % 1 L (4-12) % Lymphocytes % (Manual) 1 L (20-40) % Monocytes % (Manual) 11 H (2-8) % Absolute Neutrophils 21.6392 Lymphocytes # (Manual) 0.2459 Monocytes # (Manual) 2.7049 Nucleated RBCs 1 Clumped Platelets D-Dimer, Quantitative 3410 H (<400) ng/mL Sodium 136 (136-145) mmol/L Potassium 2.1 L* (3.5-5.1) mmol/L Chloride 100 (98-107) mmol/L Carbon Dioxide 17.8 L (21.0-32.0) mmol/L Anion Gap 20.3 H (5-15) mmol/L BUN 23 H (7-18) mg/dL Creatinine 1.32 H (0.51-1.17) mg/dL Est Cr Clr Drug Dosing 38.50 mL/min Estimated GFR (MDRD) 42 mL/min Glucose 94 (70-140) mg/dL Lactic Acid (0.4-2.0) mmol/L Calcium 8.9 (8.7-10.3) mg/dL Magnesium (1.8-2.4) mg/dL Total Bilirubin 0.6 (0.2-1.0) mg/dL AST 14 L (15-37) U/L ALT 14 (14-63) U/L Alkaline Phosphatase 99 (46-116) U/L Troponin I < 0.017 (0.000-0.056) ng/mL Total Protein 7.1 (6.4-8.2) g/dL Albumin 2.42 L (3.40-5.00) g/dL Amylase 54 (25-125) U/L Lipase 187 (73-393) U/L Specimen Type Urine Color Urine Appearance Urine pH Ur Specific [place] Urine Protein Urine Glucose (UA) Urine Ketones Urine Occult Blood Urine Nitrite Urine Bilirubin Urine Urobilinogen Ur Leukocyte Esterase U Hyaline Cast (Auto) Urine RBC Urine WBC Ur Epithelial Cells Other Crystals Amorphous Sediment Urine Bacteria Granular Casts (Auto) Urine Mucus Urine Other Urine Trichomonas Urine Yeast Urinalysis Comment 09/23/20 09/23/20 09/23/20 Range/Units 14:10 15:18 15:18 WBC (5.00-10.00) 10^3/uL RBC (3.80-5.50) 10^6/uL Hgb (12.0-16.0) g/dL Hct (37.0-47.0) % MCV (82.0-92.0) fL MCH (27.0-31.0) pg MCHC (32.0-36.0) g/dL RDW (11.5-14.5) % Plt Count (150-400) 10^3/uL MPV (7.4-10.4) fL Immature Gran % (Auto) (0.0-5.0) % Neut % (Auto) (50.0-70.0) % Lymph % (Auto) (20.0-40.0) % [place] % (Auto) (2.0-8.0) % Eos % (Auto) (1.0-3.0) % Baso % (Auto) (0.0-1.0) % Neut # (Auto) (2.50-7.00) 10^3/uL Lymph # (Auto) (1.00-4.00) 10^3/uL [place] # (Auto) (0.10-0.80) 10^3/uL Eos # (Auto) (0.10-0.30) 10^3/uL Baso # (Auto) (0.00-0.10) 10^3/uL Immature Gran # (Auto) (0.00-0.50) 10^3/uL Add Manual Diff Neutrophils % (Manual) (50-70) % Band Neutrophils % (4-12) % Lymphocytes % (Manual) (20-40) % Monocytes % (Manual) (2-8) % Absolute Neutrophils Lymphocytes # (Manual) Monocytes # (Manual) Nucleated RBCs Clumped Platelets D-Dimer, Quantitative (<400) ng/mL Sodium (136-145) mmol/L Potassium (3.5-5.1) mmol/L Chloride (98-107) mmol/L Carbon Dioxide (21.0-32.0) mmol/L Anion Gap (5-15) mmol/L BUN (7-18) mg/dL Creatinine (0.51-1.17) mg/dL Est Cr Clr Drug Dosing mL/min Estimated GFR (MDRD) mL/min Glucose (70-140) mg/dL Lactic Acid 1.6 (0.4-2.0) mmol/L Calcium (8.7-10.3) mg/dL Magnesium (1.8-2.4) mg/dL Total Bilirubin (0.2-1.0) mg/dL AST (15-37) U/L ALT (14-63) U/L Alkaline Phosphatase (46-116) U/L Troponin I (0.000-0.056) ng/mL Total Protein (6.4-8.2) g/dL Albumin (3.40-5.00) g/dL Amylase (25-125) U/L Lipase (73-393) U/L Specimen Type Cancelled Urinvoid Urine Color Cancelled [place] H Urine Appearance Cancelled Slightly cloudy H Urine pH Cancelled 6.0 Ur Specific [place] Cancelled 1.010 Urine Protein Cancelled 100 H Urine Glucose (UA) Cancelled 100 H Urine Ketones Cancelled Trace H Urine Occult Blood Cancelled Small H Urine Nitrite Cancelled Positive H Urine Bilirubin Cancelled Small H Urine Urobilinogen Cancelled 1.0 Ur Leukocyte Esterase Cancelled Small H U Hyaline Cast (Auto) Cancelled Urine RBC Cancelled 0-5 Urine WBC Cancelled >100 H Ur Epithelial Cells Cancelled Occasional Other Crystals Cancelled Amorphous Sediment Cancelled Urine Bacteria Cancelled Rare Granular Casts (Auto) Cancelled Urine Mucus Cancelled Urine Other Cancelled Urine Trichomonas Cancelled Urine Yeast Cancelled Urinalysis Comment Cancelled 09/23/20 09/24/20 09/24/20 Range/Units 22:05 07:50 07:50 WBC 24.93 H (5.00-10.00) 10^3/uL RBC 2.42 L (3.80-5.50) 10^6/uL Hgb 8.0 L D (12.0-16.0) g/dL Hct 23.0 L (37.0-47.0) % MCV 95.0 H (82.0-92.0) fL MCH 33.1 H (27.0-31.0) pg MCHC 34.8 (32.0-36.0) g/dL RDW 15.4 H (11.5-14.5) % Plt Count 399 (150-400) 10^3/uL MPV 11.3 H (7.4-10.4) fL Immature Gran % (Auto) 4.9 (0.0-5.0) % Neut % (Auto) 86.0 H (50.0-70.0) % Lymph % (Auto) 3.3 L (20.0-40.0) % [place] % (Auto) 4.5 (2.0-8.0) % Eos % (Auto) 1.1 (1.0-3.0) % Baso % (Auto) 0.2 (0.0-1.0) % Neut # (Auto) 21.44 H (2.50-7.00) 10^3/uL Lymph # (Auto) 0.83 L (1.00-4.00) 10^3/uL [place] # (Auto) 1.12 H (0.10-0.80) 10^3/uL Eos # (Auto) 0.27 (0.10-0.30) 10^3/uL Baso # (Auto) 0.05 (0.00-0.10) 10^3/uL Immature Gran # (Auto) 1.22 H (0.00-0.50) 10^3/uL Add Manual Diff Neutrophils % (Manual) (50-70) % Band Neutrophils % (4-12) % Lymphocytes % (Manual) (20-40) % Monocytes % (Manual) (2-8) % Absolute Neutrophils Lymphocytes # (Manual) Monocytes # (Manual) Nucleated RBCs Clumped Platelets Rare D-Dimer, Quantitative (<400) ng/mL Sodium 140 (136-145) mmol/L Potassium 2.2 L* 2.8 L (3.5-5.1) mmol/L Chloride 108 H (98-107) mmol/L Carbon Dioxide 15.4 L (21.0-32.0) mmol/L Anion Gap 19.4 H (5-15) mmol/L BUN 16 (7-18) mg/dL Creatinine 1.11 (0.51-1.17) mg/dL Est Cr Clr Drug Dosing 45.79 mL/min Estimated GFR (MDRD) 51 mL/min Glucose 81 (70-140) mg/dL Lactic Acid (0.4-2.0) mmol/L Calcium 7.9 L (8.7-10.3) mg/dL Magnesium 1.7 L 1.8 (1.8-2.4) mg/dL Total Bilirubin (0.2-1.0) mg/dL AST (15-37) U/L ALT (14-63) U/L Alkaline Phosphatase (46-116) U/L Troponin I (0.000-0.056) ng/mL Total Protein (6.4-8.2) g/dL Albumin (3.40-5.00) g/dL Amylase (25-125) U/L Lipase (73-393) U/L Specimen Type Urine Color Urine Appearance Urine pH Ur Specific [place] Urine Protein Urine Glucose (UA) Urine Ketones Urine Occult Blood Urine Nitrite Urine Bilirubin Urine Urobilinogen Ur Leukocyte Esterase U Hyaline Cast (Auto) Urine RBC Urine WBC Ur Epithelial Cells Other Crystals Amorphous Sediment Urine Bacteria Granular Casts (Auto) Urine Mucus Urine Other Urine Trichomonas Urine Yeast Urinalysis Comment Result Diagrams: 09/25/20 07:20 09/25/20 07:20 [place] Results Last 24 hrs: Microbiology 09/23/20 15:18 Urine Culture - Preliminary Urine, Voided Sepsis Event Note - Evaluation Sepsis Screening Result: Sepsis Risk - Focused Exam Vital Signs: Vital Signs Temp Pulse Resp BP Pulse Ox 09/24/20 06:41 98.3 F 87 16 99/62 91 L 09/24/20 02:58 97.4 F 100 20 123/72 92 L 09/23/20 22:32 98.0 F 93 20 100/62 90 L Problem List Initiated/Reviewed/Updated: Yes Orders Last 24hrs: Active Orders 24 hr Category Date Time Status Admission Status [Patient Status] [ADT] Routine ADT 09/23/20 18:57 Active Patient Status [ADT] Routine ADT 09/23/20 19:58 Active Oxygen Therapy [RC] .PRN Care 09/23/20 19:58 Active Peripheral IV Care [RC] Care 09/23/20 14:13 Active Up ad Kimberly [RC] ASDIRECTED Care 09/23/20 19:57 Active VTE/DVT Education [RC] DAILY Care 09/23/20 19:58 Active Vital Signs [RC] 0300,0700,1100,1500,1900,2300 Care 09/23/20 19:58 Active CULTURE URINE [RM] Urgent Lab 09/23/20 15:18 Results PHOSPHORUS [CHEM] Routine Lab 09/24/20 10:28 Ordered URINE ID [MREF] Urgent Lab 09/23/20 15:18 Received Acetaminophen [TylenoL] Med 09/23/20 19:56 Active 650 mg PO Q6H PRN Calcium Carbonate Med 09/24/20 08:00 Active 600 mg PO BIDMEALS Ciprofloxacin in D5W [Cipro in D5W 400 MG/200 ML] 400 Med 09/24/20 07:30 Active mg Premix Bag 1 bag IV Q12H Cyanocobalamin (Vitamin B12) [Vitamin B12] Med 09/24/20 09:00 Active 1,000 mcg PO DAILY Enoxaparin [Lovenox] Med 09/23/20 21:00 Active 60 mg SUBCUT Q12H Escitalopram [Lexapro] Med 09/24/20 09:00 Active 20 mg PO DAILY Iron Polysaccharides Complex [Ferrex 150] Med 09/24/20 08:00 Active 150 mg PO Q48H Levothyroxine Med 09/24/20 07:30 Active 112 mcg PO ACBREAKFAST Levothyroxine Med 09/24/20 07:30 Active 25 mcg PO ACBREAKFAST Magnesium Oxide Med 09/23/20 22:45 Active 500 mg PO DAILY Omeprazole Med 09/24/20 07:30 Active 20 mg PO ACBREAKFAST Sodium Chloride 0.9% [Normal Saline] 1,000 ml Med 09/23/20 15:45 Active IV ASDIRECTED Sodium Chloride 0.9% [Saline Flush] Med 09/23/20 14:13 Active 10 ml FLUSH Q8HR PRN buPROPion [Wellbutrin XL] Med 09/24/20 09:00 Active 150 mg PO DAILY busPIRone [Buspar] Med 09/23/20 20:40 Active 10 mg PO DAILY PRN hydrOXYzine HCL [Atarax] Med 09/23/20 20:29 Active 25 mg PO QID PRN Peripheral IV Insertion Adult [OM.PC] Routine Oth 09/23/20 14:13 Ordered Code Status [Resuscitation Status] Stat Resus Stat 09/23/20 19:06 Ordered EKG 12 Lead [EK] Urgent Ther 09/23/20 14:11 Stop Req Medication Orders Acetaminophen (Acetaminophen 325 Mg Tab) 650 mg PO Q6H PRN PRN Reason: Pain Last Admin: 09/24/20 03:39 Dose: 650 mg Documented by: Admin: 09/23/20 20:12 Dose: 650 mg Documented by: MARKEL Bupropion HCl (Bupropion 150 Mg Tab.Er) 150 mg PO DAILY [facility] Last Admin: 09/24/20 08:50 Dose: 150 mg Documented by: SATHYA Buspirone HCl (Buspirone 10 Mg Tab) 10 mg PO DAILY PRN PRN Reason: Anxiety Calcium Carbonate/Glycine (Calcium Carbonate 600 Mg Tab) 600 mg PO BIDMEALS [facility] Last Admin: 09/24/20 08:49 Dose: 600 mg Documented by: SATHYA Cyanocobalamin (Cyanocobalamin (Vitamin B12) 500 Mcg Tab) 1,000 mcg PO DAILY [facility] Last Admin: 09/24/20 08:50 Dose: 1,000 mcg Documented by: SATHYA Enoxaparin Sodium (Enoxaparin 60 Mg/0.6 Ml Syringe) 60 mg SUBCUT Q12H [facility] Last Admin: 09/24/20 08:50 Dose: 60 mg Documented by: Admin: 09/23/20 20:50 Dose: 60 mg Documented by: MARKEL Escitalopram Oxalate (Escitalopram 10 Mg Tab) 20 mg PO DAILY [facility] Last Admin: 09/24/20 08:49 Dose: 20 mg Documented by: SATHYA Hydroxyzine HCl (Hydroxyzine Hcl 25 Mg Tab) 25 mg PO QID PRN PRN Reason: bladder pain Sodium Chloride (Normal Saline) 1,000 mls @ 150 mls/hr IV ASDIRECTED [facility] Last Admin: 09/24/20 05:11 Dose: 125 mls/hr Documented by: Infusion: 09/24/20 05:11 Dose: 125 mls/hr Documented by: Infusion: 09/23/20 22:06 Dose: 125 mls/hr Documented by: Admin: 09/23/20 22:05 Dose: 250 mls/hr Documented by: Infusion: 09/23/20 20:00 Dose: 250 mls/hr Documented by: Admin: 09/23/20 16:00 Dose: 250 mls/hr Documented by: BLAINE Ciprofloxacin/Dextrose 400 mg/ (Premix) 200 mls @ 200 mls/hr IV Q12H [facility] Last Admin: 09/24/20 07:40 Dose: 200 mls/hr Documented by: SATHYA Levothyroxine Sodium (Levothyroxine 112 Mcg Tab) 112 mcg PO ACBREAKFAST [facility] Last Admin: 09/24/20 06:30 Dose: 112 mcg Documented by: MARKEL Levothyroxine Sodium (Levothyroxine 25 Mcg Tab) 25 mcg PO ACBREAKFAST [facility] Last Admin: 09/24/20 06:31 Dose: 25 mcg Documented by: MARKEL Magnesium Oxide (Magnesium Oxide 500 Mg Tab) 500 mg PO DAILY [facility] Last Admin: 09/24/20 08:49 Dose: 500 mg Documented by: Admin: 09/23/20 23:11 Dose: 500 mg Documented by: MARKEL Omeprazole (Omeprazole 20 Mg Cap.Cr) 20 mg PO ACBREAKFAST [facility] Last Admin: 09/24/20 06:30 Dose: 20 mg Documented by: MARKEL Polysaccharide Iron Complex (Iron Polysaccharides Complex 150 Mg Cap) 150 mg PO Q48H [facility] Last Admin: 09/24/20 08:49 Dose: 150 mg Documented by: SATHYA Sodium Chloride (Sodium Chloride 0.9% 10 Ml Syringe) 10 ml FLUSH Q8HR PRN PRN Reason: keep vein open Last Admin: 09/23/20 16:35 Dose: 10 ml Documented by: Admin: 09/23/20 14:57 Dose: 10 ml Documented by: BLAINE Assessment/Plan Comment:: HPI summary: Lidia, 54y F, presented to the ER after being seen briefly at the [facility] by Kavita Suarez APRN, [place] who recommended patient present to ER due to hypotension, tachycardia and pallor in the clinic. Negative COVID test obtained and patient had a near syncopal episode when a blood draw was attempted. Symptom onset occurred on 09/16/20 which consisted of weakness, patient experienced five days of persistent N/V/D with decreased oral intake. Symptoms started to improve as of 09/21/20 with no episodes of vomiting yesterday (09/22/20), nausea and diarrhea have improved as well as reported periumbilical discomfort. Reported mild headache and chronic stiff neck which is not significantly changed from baseline. ED course: Patient was given 2L IVF bolus with significant improvement in color and heart rate coming down into the 90s after two thirds of the fluid bolus was given. Elevated D-dimer of 3400, CTA negative for PE WBC 24.59 (87% neutrophils), Hgb 9.8. Lactic acid 1.6. CXR without acute cardiopulmonary process. CT abdomen/pelvis indicated R acute pyelonephritis without evidence of obstruction. Patient started on IV Cipro due to concern of possible cross-se nsitivity with cephalosporins as patient has known allergy to augmentin. Creatinine 1.32, BUN 23, GFR 42; no known hx of CKD. K 2.1, Mg 1.7. Urinalysis indicated orange cloudy urine with small leukocyte esterase, positive nitrites and >100 WBC; urine culture pending. Patient admitted under observation status for acute pyelonephritis, leukocytosis with neutrophilia and hypokalemia Hospital course: 09/24/20: WBC persistently elevated at 24.93 with neutrophilia. K 2.8 this morning after IV supplementation for initial K of 2.1. Started on telemetry and additional KCl riders of 60 Meq ordered with repeat labs to follow at 1900 this evening. Continue Mg supplementation, Mg 1.8. Phosphate 2.1, starting neutraphos QID for supplementation. Blood cultures, CRP and procalcitonin ordered. CRP > 11.0. Urine culture prelim indicates >100,000 gm -ve bacteria; added one time dose of rocephin 1gm IV push in addition to cipro IV BID dosing as WBC essentially unchanged from admit. IVF at 125ml/hr continues, BP 99/62. Very low suspicion of DVT as no edema, redness or leg pain present on exam, no recent car rides. Lovenox changed from therapeutic BID dosing to prophylactic daily dosing at 40mg. Pyridium ordered per patient request for urinary burning symptoms. Repeat CBC, BMP, Mg and Phos in am. Consider adding loperamide for diarrhea after completion of KCl riders. Evaluate effect of rocephin dose on WBC in am. Incentive spirometry due to O2 sat low 90s. Hospitalization problems and plan: # Pyelonephritis - - Continue Cipro IV BID. WBC essentially unchanged, add rocephin 1g IV push for broader coverage x 1 dose to determine effect while await urine culture results (last two urine culture sensitivity reports did not list FQ) # Neutrophilia with left shift - Blood cultures, procalcitionin pending. Repeat CBC in am. # Hypokalemia - 60MEq given overnight following admission - additional KCl 60 Meq riders today, repeat K 2.8. Repeat BMP at 1900. Consider PO replacement if > 3.0 on recheck. # Elevated D-dimer - No evidence of PE on CTA. No clinical findings to support DVT, decreased lovenox dosing from therapeutic to prophylactic # Hypomagensemia - - continue Mg supplementation PO daily, Mg 1.8 this am. Repeat at 1900 and in am. # Hypophosphatemia - Start neutraphos QID for supplementation # Dysuria - Pyridium TID PRN # elevated CRP # Diarrhea - Consider loperamide after completion of IV KCl riders Chronic, stable conditions: # Hypertension - amlodipine 5mg PO daily, lisinopril/HCTZ 10-12.5mg PO BID (antihypertensives on hold due to hypotension, dehydration) # Hyperlipidemia - No current medications. # Hypothyroidism - continue levothyroxine 137mcg tab PO daily. (Last TSH 0.34 05/06/20) # S/p gastric bypass - B12 1000mcg PO daily. # Vitamin D deficiency - Ergocalciferol 50,000 units every 2 weeks # Anxiety/Depression - Continue wellbutrin 150mg PO daily, lexapro 20mg PO daily, hydroxyzine 25mg PRN, buspar 10mg PRN # Anemia (iron deficiency) - Fe polysaccharide 150mg PO QOD. # S/p lumbar fusion # Chronic interstitial cystitis with history of UTI # Myofibrositis - baclofen 10mg PO PRN # Fibromyalgia syndrome # Vaginal dryness - elmiron 100mg cap TID Hospitalization details: # FEN: IVF@125ml/hr; IV KCl riders for hypokalemia, PO Mg and K supplementation; regular diet, encouraging PO fluids # PPX: Enoxaparin 40mg subq daily # Code status: FULL # Emergency contact: # Disposition: Status changed to inpatient status today due to pyelonephritis, hypokalemia, hypomagnesmia, hypophosphatemia. Anticipate > 2 midnights for management of pyleonephritis and electrolyte abnormalities.
[2020-09-24] MEDS ORDERED: cefTRIAXone 1 GM Vial IVPUSH ONE (11:23)
[2020-09-24] MEDS ORDERED: Phenazopyridine 100 MG Tab PO PRN (11:25)
[2020-09-24] MEDS ORDERED: Enoxaparin 40 MG/0.4 ML Syringe SUBCUT SCH (11:30)
[2020-09-24] MEDS ORDERED: Potassium Chloride 20 MEQ in Premix Bag 1 BAG IV ONE ×3 (12:00→16:00)
[2020-09-24] MEDS ORDERED: Lidocaine 2% 100 MG/5 ML Syringe IVPUSH PRN (12:15)
[2020-09-24] MEDS ORDERED: EPINEPHrine 1:10,000 1 MG/10 ML Syringe IVPUSH PRN (12:15)
[2020-09-24] MEDS ORDERED: Atropine 0.1 MG/ML 10 ML Syringe IVPUSH PRN (12:15)
[2020-09-24] MEDS ORDERED: Nitroglycerin 0.4 MG Tab.SL SL PRN (12:15)
[2020-09-24] MEDS: Phosphorus #1 250 MG Tab PO SCH ×3 (15:06→21:39)
[2020-09-24 20:17] LABS: ANION GAP 19.2 mmol/L (5-15); CHLORIDE,CL 111 mmol/L (98-107); SODIUM,NA 143 mmol/L (136-145)
[2020-09-25] MEDS: Sodium Chloride 0.9% 1,000 ML IV SCH ×2 (01:23→11:28)
[2020-09-25] MEDS: Ciprofloxacin in D5W 400 MG in Premix Bag 1 BAG IV SCH ×4 (06:21→06:30)
[2020-09-25] MEDS: Levothyroxine 112 MCG Tab PO SCH ×2 (06:21→06:30)
[2020-09-25] MEDS: Omeprazole 20 MG Cap.CR PO SCH ×2 (06:21→06:31)
[2020-09-25] MEDS: Levothyroxine 25 MCG Tab PO SCH ×2 (06:22→06:30)
[2020-09-25] MEDS: Acetaminophen 325 MG Tab PO PRN ×2 (06:25→11:52)
[2020-09-25 08:04] LABS: ANION GAP 18.5 mmol/L (5-15); CHLORIDE,CL 110 mmol/L (98-107); SODIUM,NA 142 mmol/L (136-145)
[2020-09-25] MEDS: Cyanocobalamin (Vitamin B12) 500 MCG Tab PO SCH (08:41)
[2020-09-25] MEDS: buPROPion 150 MG Tab.ER PO SCH (08:41)
[2020-09-25] MEDS: Escitalopram 10 MG Tab PO SCH (08:41)
[2020-09-25] MEDS: Magnesium Oxide 500 MG Tab PO SCH (08:41)
[2020-09-25] MEDS: Phosphorus #1 250 MG Tab PO SCH ×2 (08:41→12:13)
[2020-09-25] MEDS: Calcium Carbonate 600 MG Tab PO SCH (08:42)
[2020-09-25] MEDS ORDERED: Enoxaparin 40 MG/0.4 ML Syringe SUBCUT SCH (09:00)
--- NOTE | 2020-09-25 12:34 | PCM.DCSUM1 ---
Discharge Summary - Hospital Course Free Text/Narrative:: Date of admission: 09/23/2020 Date of discharge: 09/25/2020 Admission diagnoses: # Pyelonephritis # Neutrophilia with left shift # Hypokalemia # Elevated D-dimer # Hypomagensemia # Dysuria # elevated CRP # Diarrhea Discharge diagnoses: # Pyelonephritis # Neutrophilia with left shift # Hypokalemia # Elevated D-dimer # Hypomagensemia # Dysuria # elevated CRP # Diarrhea # Hypertension # Hyperlipidemia # Hypothyroidism # S/p gastric bypass # Vitamin D deficiency # Anxiety/Depression # Anemia (iron deficiency) # S/p lumbar fusion # Chronic interstitial cystitis with history of UTI # Myofibrositis # Fibromyalgia syndrome # Vaginal dryness Consultations: Dr. Lynch at [facility] Procedures: None Hospital course: Lidia, 54y F, presented to the ER after being seen briefly at the [facility] by Kavita Suarez APRN, CNP who recommended patient present to ER due to hypotension, tachycardia and pallor in the clinic. Negative COVID test obtained and patient had a near syncopal episode when a blood draw was attempted. Symptom onset occurred on 09/16/20 which consisted of weakness, patient experienced five days of persistent N/V/D with decreased oral intake. Symptoms started to improve as of 09/21/20 with no episodes of vomiting yesterday (09/22/20), nausea and diarrhea have improved as well as reported periumbilical discomfort. Reported mild headache and chronic stiff neck which is not significantly changed from baseline. ED course: Patient was given 2L IVF bolus with significant improvement in color and heart rate coming down into the 90s after two thirds of the fluid bolus was given. Elevated D-dimer of 3400, CTA negative for PE WBC 24.59 (87% neutrophils), Hgb 9.8. Lactic acid 1.6. CXR without acute cardiopulmonary process. CT abdomen/pelvis indicated R acute pyelonephritis without evidence of obstruct ion. Patient started on IV Cipro due to concern of possible cross-sensitivity with cephalosporins as patient has known allergy to augmentin. Creatinine 1.32, BUN 23, GFR 42; no known hx of CKD. K 2.1, Mg 1.7. Urinalysis indicated orange cloudy urine with small leukocyte esterase, positive nitrites and >100 WBC; urine culture pending. Patient admitted under observation status for acute pyelonephritis, leukocytosis with neutrophilia and hypokalemia 09/24/20: WBC persistently elevated at 24.93 with neutrophilia. K 2.8 this morning after IV supplementation for initial K of 2.1. Started on telemetry and additional KCl riders of 60 Meq ordered with repeat labs to follow at 1900 this evening. Continue Mg supplementation, Mg 1.8. Phosphate 2.1, starting neutraphos QID for supplementation. Blood cultures, CRP and procalcitonin ordered. CRP > 11.0. Urine culture prelim indicates >100,000 gm -ve bacteria; added one time dose of rocephin 1gm IV push in addition to cipro IV BID dosing as WBC essentially unchanged from admit. IVF at 125ml/hr continues, BP 99/62. Very low suspicion of DVT as no edema, redness or leg pain present on exam, no recent car rides. Lovenox changed from therapeutic BID dosing to prophylactic daily dosing at 40mg. Pyridium ordered per patient request for urinary burning symptoms. Repeat CBC, BMP, Mg and Phos in am. Consider adding loperamide for diarrhea after completion of KCl riders. Evaluate effect of rocephin dose on WBC in am. Incentive spirometry due to O2 sat low 90s. 09/25/20: No overnight concerns noted. Patient has remained afebrile overnight. Although, she has been mildly tachycardic, but pressure has been stable. Oxygen saturation continues to be diminished to 91% on 1 L. Patient reports no pain, nausea or vomiting. Patient has had several episodes of diarrhea, however she states that this may have improved slightly. Denies blood in the stool. WBC continues to be elevated although with a downward trend at 21.29, RBCs 2.18, hemoglobin 7.1 (Baseline 12), hematocrit 20.7 and platelets 503. 85% neutrophils. Patient continues to get Cipro IV and did receive a dose of Rocephin 1 g yesterday. Pro-calcitonin is elevated at 19.11. Blood cultures still pending. Urine culture preliminary report did show greater than 100,000 CFU gram-negative rods. She continues to get IV fluids at 125 ML's per hour. Pyridium has helped with patient's urinary discomfort. Patient had received potassium riders for hypokalemia of 2.8 yesterday with subsequent recheck being 3.6, however this is 3 today. Phosphorus 2.7. Magnesium mildly decreased at 1.7. Upon discussion of patient condition and minimal improvement patient is requesting transfer to [facility] in [place]. Call placed to [facility] one call to discuss patient condition and recommendations for transfer for specialty consult. Acceptance from Dr. Lynch. Patient transferred via EMS. Discharge and follow-up recommendations: - Discharge to [facility] via EMS for specialty consultation - New medications at discharge: none - Follow-up upon hospital discharge. Diagnosis: Stroke: No - Discharge Data Discharge Date: 09/25/20 Discharge Disposition: DC/Tfer to Acute Hospital 02 Condition: Fair - Referral to Home Health Primary Care Physician: Cony Tamayo NP - Patient Instructions Diet: Usual Diet as Tolerated Activity: As Tolerated - Discharge Plan *PRESCRIPTION DRUG MONITORING PROGRAM REVIEWED*: Not Applicable *COPY OF PRESCRIPTION DRUG MONITORING REPORT IN PATIENT YANI: Not Applicable Home Medications: Home Meds Escitalopram Oxalate 20 mg PO DAILY 11/15/17 [History] Calcium Carbonate [Calcium] 600 mg PO BIDMEALS 09/23/20 [History] Cyanocobalamin (Vitamin B-12) [B-12] 1,000 mg PO DAILY 09/23/20 [History] Iron Polysaccharides Complex [Ferrex 150] 1 cap PO Q48H 09/23/20 [History] buPROPion HCL [Wellbutrin Xl] 1 tab PO DAILY 09/23/20 [History] busPIRone [Buspar] 10 mg PO DAILY PRN 09/23/20 [History] hydrOXYzine HCL [hydrOXYzine] 25 mg PO QID PRN 09/23/20 [History] Acetaminophen [Tylenol] 650 mg PO Q6H PRN tablet 09/25/20 [Rx] Atropine [Atropine 0.1 MG/ML] 0 mg IVPUSH ASDIRECTED PRN syringe 09/25/20 [Rx] Ciprofloxacin in D5W [Ciprofloxacin-D5W] 400 mg IV Q12H bag 09/25/20 [Rx] EPINEPHrine [EPINEPHrine 1:10,000] 1 mg IVPUSH ASDIRECTED PRN syringe 09/25/20 [Rx] Enoxaparin [Lovenox] 40 mg SUBCUT Q24H syringe 09/25/20 [Rx] Levothyroxine 25 mcg PO ACBREAKFAST tablet 09/25/20 [Rx] Levothyroxine 112 mcg PO ACBREAKFAST tablet 09/25/20 [Rx] Lidocaine 2% [Xylocaine 2%] 0 mg IVPUSH ASDIRECTED PRN syringe 09/25/20 [Rx] Magnesium Oxide 500 mg PO DAILY tablet 09/25/20 [Rx] Nitroglycerin [Nitrostat] 0.4 mg SL ASDIRECTED PRN tab.sl 09/25/20 [Rx] Omeprazole 20 mg PO ACBREAKFAST cap.cr 09/25/20 [Rx] Phenazopyridine [Pyridium] 100 mg PO TID PRN tablet 09/25/20 [Rx] Phosphorus #1 [Neutra-Phos] 250 mg PO QID tablet 09/25/20 [Rx] Premix Bag 200 bag IV Q12H bag 09/25/20 [Rx] Sodium Chloride 0.9% [Normal Saline] 150 ml IV ASDIRECTED bag 09/25/20 [Rx] Sodium Chloride 0.9% [Saline Flush] 10 ml FLUSH Q8HR PRN syringe 09/25/20 [Rx] Maintain SpO2% greater than: 92 Referrals: Cony Tamayo, [employer]PERATOR [Primary Care Provider] - (Upon discharge from hospital) - Discharge Summary/Plan Comment DC Time >30 min.: Yes - General Info Date of Service: 09/25/20 Subjective Update: 54 year old female declares no overnight concerns. Diarrhea has slowed. She is requesting transfer to [facility]. Functional Status: Reports: Pain Controlled, Tolerating Diet, Ambulating, Urinating. Denies: New Symptoms - Review of Systems General: Reports: Fatigue. Denies: Fever, Chills, Appetite HEENT: Reports: Headaches (mild). Denies: Dysphasia, Sinus Congestion, Sore Throat, Visual Changes Pulmonary: Reports: Shortness of Breath (mild). Denies: Cough, Sputum, Wheezing Cardiovascular: Reports: Lightheadedness. Denies: Chest Pain, Palpitations, Edema Gastrointestinal: Reports: Diarrhea. Denies: Abdominal Pain, Constipation, Nausea, Vomiting Genitourinary: Reports: Dysuria (at times, pyridium helps), Frequency. Denies: Urgency, Hematuria Musculoskeletal: Denies: Neck Pain, Back Pain, Joint Swelling Skin: Reports: Pallor, Bruising (from IV). Denies: Dryness, Rash Neurological: Reports: Headache, Weakness. Denies: Confusion, Paresthesia, Difficulty Walking Psychiatric: Denies: Confusion, Mood Lability, Anxiety - Patient Data Vitals - Most Recent: Last Vital Signs Temp 37.1 C 09/25/20 11:00 Pulse 102 H 09/25/20 06:40 Resp 20 09/25/20 11:00 BP 125/76 09/25/20 11:00 Pulse Ox 91 L 09/25/20 11:00 Weight - Most Recent: 66.706 kg I&O - Last 24 hours: Intake & Output 09/24/20 09/25/20 09/25/20 22:59 06:59 14:59 Intake Total 900 2185 Balance 900 2185 Lab Results - Last 24 hrs: Laboratory Results - last 24 hr 09/24/20 09/24/20 09/25/20 Range/Units 12:30 19:30 07:20 WBC (5.00-10.00) 10^3/uL RBC (3.80-5.50) 10^6/uL Hgb (12.0-16.0) g/dL Hct (37.0-47.0) % MCV (82.0-92.0) fL MCH (27.0-31.0) pg MCHC (32.0-36.0) g/dL RDW (11.5-14.5) % Plt Count (150-400) 10^3/uL MPV (7.4-10.4) fL Immature Gran % (Auto) (0.0-5.0) % Neut % (Auto) (50.0-70.0) % Lymph % (Auto) (20.0-40.0) % [place] % (Auto) (2.0-8.0) % Eos % (Auto) (1.0-3.0) % Baso % (Auto) (0.0-1.0) % Neut # (Auto) (2.50-7.00) 10^3/uL Lymph # (Auto) (1.00-4.00) 10^3/uL [place] # (Auto) (0.10-0.80) 10^3/uL Eos # (Auto) (0.10-0.30) 10^3/uL Baso # (Auto) (0.00-0.10) 10^3/uL Immature Gran # (Auto) (0.00-0.50) 10^3/uL Sodium 143 142 (136-145) mmol/L Potassium 3.6 3.0 L (3.5-5.1) mmol/L Chloride 111 H 110 H (98-107) mmol/L Carbon Dioxide 16.4 L 16.5 L (21.0-32.0) mmol/L Anion Gap 19.2 H 18.5 H (5-15) mmol/L BUN 10 6 L (7-18) mg/dL Creatinine 0.94 0.75 (0.51-1.17) mg/dL Est Cr Clr Drug Dosing 54.07 67.76 mL/min Estimated GFR (MDRD) > 60 > 60 mL/min Glucose 115 120 (70-140) mg/dL Calcium 7.9 L 8.1 L (8.7-10.3) mg/dL Phosphorus 2.2 L 2.7 (2.6-4.7) mg/dL Magnesium 1.7 L 1.7 L (1.8-2.4) mg/dL Procalcitonin 19.11 H ng/mL 09/25/20 Range/Units 07:20 WBC 21.29 H (5.00-10.00) 10^3/uL RBC 2.18 L (3.80-5.50) 10^6/uL Hgb 7.1 L (12.0-16.0) g/dL Hct 20.7 L (37.0-47.0) % MCV 95.0 H (82.0-92.0) fL MCH 32.6 H (27.0-31.0) pg MCHC 34.3 (32.0-36.0) g/dL RDW 14.9 H (11.5-14.5) % Plt Count 503 H D (150-400) 10^3/uL MPV 8.7 (7.4-10.4) fL Immature Gran % (Auto) 4.9 (0.0-5.0) % Neut % (Auto) 85.0 H (50.0-70.0) % Lymph % (Auto) 3.9 L (20.0-40.0) % [place] % (Auto) 4.7 (2.0-8.0) % Eos % (Auto) 1.2 (1.0-3.0) % Baso % (Auto) 0.3 (0.0-1.0) % Neut # (Auto) 18.09 H (2.50-7.00) 10^3/uL Lymph # (Auto) 0.84 L (1.00-4.00) 10^3/uL [place] # (Auto) 0.99 H (0.10-0.80) 10^3/uL Eos # (Auto) 0.26 (0.10-0.30) 10^3/uL Baso # (Auto) 0.07 (0.00-0.10) 10^3/uL Immature Gran # (Auto) 1.04 H (0.00-0.50) 10^3/uL Sodium (136-145) mmol/L Potassium (3.5-5.1) mmol/L Chloride (98-107) mmol/L Carbon Dioxide (21.0-32.0) mmol/L Anion Gap (5-15) mmol/L BUN (7-18) mg/dL Creatinine (0.51-1.17) mg/dL Est Cr Clr Drug Dosing mL/min Estimated GFR (MDRD) mL/min Glucose (70-140) mg/dL Calcium (8.7-10.3) mg/dL Phosphorus (2.6-4.7) mg/dL Magnesium (1.8-2.4) mg/dL Procalcitonin ng/mL ASHLEY Results - Last 24 hrs: Microbiology 09/23/20 15:18 Urine Culture - Preliminary Urine, Voided Med Orders - Current: Current Medications Acetaminophen (Acetaminophen 325 Mg Tab) 650 mg PO Q6H PRN PRN Reason: Pain Last Admin: 09/25/20 11:52 Dose: 650 mg Documented by: Atropine Sulfate (Atropine 0.1 Mg/Ml 10 Ml Syringe) 0 mg IVPUSH ASDIRECTED PRN PRN Reason: Heart Bupropion HCl (Bupropion 150 Mg Tab.Er) 150 mg PO DAILY [facility] Last Admin: 09/25/20 08:41 Dose: 150 mg Documented by: Buspirone HCl (Buspirone 10 Mg Tab) 10 mg PO DAILY PRN PRN Reason: Anxiety Calcium Carbonate/Glycine (Calcium Carbonate 600 Mg Tab) 600 mg PO BIDMEALS [facility] Last Admin: 09/25/20 08:42 Dose: 600 mg Documented by: Cyanocobalamin (Cyanocobalamin (Vitamin B12) 500 Mcg Tab) 1,000 mcg PO DAILY [facility] Last Admin: 09/25/20 08:41 Dose: 1,000 mcg Documented by: Enoxaparin Sodium (Enoxaparin 40 Mg/0.4 Ml Syringe) 40 mg SUBCUT Q24H [facility] Last Admin: 09/25/20 08:41 Dose: 40 mg Documented by: Epinephrine HCl (Epinephrine 1:10,000 1 Mg/10 Ml Syringe) 1 mg IVPUSH ASDIRECTED PRN PRN Reason: Heart Escitalopram Oxalate (Escitalopram 10 Mg Tab) 20 mg PO DAILY [facility] Last Admin: 09/25/20 08:41 Dose: 20 mg Documented by: Hydroxyzine HCl (Hydroxyzine Hcl 25 Mg Tab) 25 mg PO QID PRN PRN Reason: bladder pain Sodium Chloride (Normal Saline) 1,000 mls @ 150 mls/hr IV ASDIRECTED [facility] Last Admin: 09/25/20 11:28 Dose: 125 mls/hr Documented by: Ciprofloxacin/Dextrose 400 mg/ (Premix) 200 mls @ 200 mls/hr IV Q12H [facility] Last Admin: 09/25/20 06:30 Dose: Not Given Documented by: Levothyroxine Sodium (Levothyroxine 112 Mcg Tab) 112 mcg PO ACBREAKFAST [facility] Last Admin: 09/25/20 06:30 Dose: Not Given Documented by: Levothyroxine Sodium (Levothyroxine 25 Mcg Tab) 25 mcg PO ACBREAKFAST [facility] Last Admin: 09/25/20 06:30 Dose: Not Given Documented by: Lidocaine HCl (Lidocaine 2% 100 Mg/5 Ml Syringe) 0 mg IVPUSH ASDIRECTED PRN PRN Reason: Heart Magnesium Oxide (Magnesium Oxide 500 Mg Tab) 500 mg PO DAILY [facility] Last Admin: 09/25/20 08:41 Dose: 500 mg Documented by: Nitroglycerin (Nitroglycerin 0.4 Mg Tab.Sl) 0.4 mg SL ASDIRECTED PRN PRN Reason: Heart Omeprazole (Omeprazole 20 Mg Cap.Cr) 20 mg PO ACBREAKFAST [facility] Last Admin: 09/25/20 06:31 Dose: Not Given Documented by: Phenazopyridine HCl (Phenazopyridine 100 Mg Tab) 100 mg PO TID PRN PRN Reason: Dysuria Last Admin: 09/25/20 12:13 Dose: 100 mg Documented by: Polysaccharide Iron Complex (Iron Polysaccharides Complex 150 Mg Cap) 150 mg PO Q48H [facility] Last Admin: 09/24/20 08:49 Dose: 150 mg Documented by: Sodium Chloride (Sodium Chloride 0.9% 10 Ml Syringe) 10 ml FLUSH Q8HR PRN PRN Reason: keep vein open Last Admin: 09/23/20 16:35 Dose: 10 ml Documented by: Sodium Phosphate (Phosphorus #1 250 Mg Tab) 250 mg PO QID [facility] Last Admin: 09/25/20 12:13 Dose: 250 mg Documented by: Discontinued Medications Ceftriaxone Sodium (Ceftriaxone 1 Gm Vial) 1 gm IVPUSH ONETIME ONE Stop: 09/24/20 11:24 Last Admin: 09/24/20 12:27 Dose: 1 gm Documented by: Diatrizoate Meglum/Diatrizoate Sod (Diatrizoate Meglumine/Diatrizoate Sodium 37% 30 Ml Bottle) 30 ml PO ONETIME ONE Stop: 09/23/20 17:13 Last Admin: 09/23/20 18:09 Dose: 30 ml Documented by: Enoxaparin Sodium (Enoxaparin 60 Mg/0.6 Ml Syringe) 60 mg SUBCUT Q12H [facility] Last Admin: 09/24/20 08:50 Dose: 60 mg Documented by: Enoxaparin Sodium (Enoxaparin 40 Mg/0.4 Ml Syringe) 40 mg SUBCUT Q24H [facility] Sodium Chloride (Normal Saline) 1,000 mls @ 999 mls/hr IV .BOLUS ONE Stop: 09/23/20 15:13 Last Admin: 09/23/20 14:10 Dose: 999 mls/hr Documented by: Potassium Chloride 20 meq/ (Premix) 100 mls @ 50 mls/hr IV ONETIME ONE Stop: 09/23/20 16:51 Last Admin: 09/23/20 15:02 Dose: 50 mls/hr Documented by: Sodium Chloride (Normal Saline) 100 mls @ 200 mls/hr IV ASDIRECTED [facility] Last Admin: 09/23/20 17:09 Dose: 200 mls/hr Documented by: Sodium Chloride (Normal Saline) 50 mls @ 200 mls/hr IV ASDIRECTED [facility] Last Admin: 09/23/20 18:09 Dose: 200 mls/hr Documented by: Potassium Chloride 20 meq/ (Premix) 100 mls @ 50 mls/hr IV ONETIME ONE Stop: 09/23/20 20:03 Last Admin: 09/23/20 18:10 Dose: 50 mls/hr Documented by: Ciprofloxacin/Dextrose 400 mg/ (Premix) 200 mls @ 200 mls/hr IV ONETIME ONE Stop: 09/23/20 19:36 Last Admin: 09/23/20 19:29 Dose: 200 mls/hr Documented by: Potassium Chloride 20 meq/ (Premix) 100 mls @ 50 mls/hr IV Q2H YAW Stop: 09/24/20 04:59 Last Admin: 09/24/20 03:39 Dose: 50 mls/hr Documented by: Potassium Chloride 20 meq/ (Premix) 100 mls @ 50 mls/hr IV ONETIME ONE Stop: 09/24/20 13:59 Last Admin: 09/24/20 12:28 Dose: 50 mls/hr Documented by: Potassium Chloride 20 meq/ (Premix) 100 mls @ 50 mls/hr IV ONETIME ONE Stop: 09/24/20 15:59 Last Admin: 09/24/20 14:52 Dose: 50 mls/hr Documented by: Potassium Chloride 20 meq/ (Premix) 100 mls @ 50 mls/hr IV ONETIME ONE Stop: 09/24/20 17:59 Last Admin: 09/24/20 17:20 Dose: 50 mls/hr Documented by: Iopamidol (Iopamidol 755 Mg/Ml 75 Ml Bottle) 75 ml IVPUSH ONETIME ONE Stop: 09/23/20 15:43 Last Admin: 09/23/20 17:09 Dose: 75 ml Documented by: Iopamidol (Iopamidol 755 Mg/Ml 75 Ml Bottle) 75 ml IVPUSH ONETIME ONE Stop: 09/23/20 17:13 Last Admin: 09/23/20 18:09 Dose: 75 ml Documented by: Ketorolac Tromethamine (Ketorolac 30 Mg/Ml Sdv) 30 mg IVPUSH ONETIME ONE Stop: 09/23/20 14:55 Last Admin: 09/23/20 14:56 Dose: 30 mg Documented by: Ketorolac Tromethamine (Ketorolac 30 Mg/Ml Sdv) Confirm Administered Dose 30 mg .ROUTE .STK-MED ONE Stop: 09/23/20 14:56 Last Admin: 09/23/20 15:06 Dose: Not Given Documented by: Ondansetron HCl (Ondansetron 4 Mg/2 Ml Sdv) 8 mg IVPUSH ONETIME ONE Stop: 09/23/20 16:26 Last Admin: 09/23/20 16:28 Dose: 8 mg Documented by: - Exam Physical Findings Comments:: GENERAL: Well-appearing adult in no acute distress. HEENT: Normocephalic, atraumatic. Conjunctiva clear. Nares patent without discharge. Mucous membranes moist, posterior pharynx unremarkable. NECK: Supple, no masses. CV: Regular rate and rhythm, no murmurs, rubs, or gallops. 2+ radial pulses. PULMONARY: Normal effort, clear to auscultation bilaterally, no wheezes, rales, or rhonchi. ABDOMEN: Positive bowel sounds, soft, nontender, nondistended. EXTREMITIES: No edema, cyanosis, or clubbing. MUSCULOSKELETAL: Moves all extremities well. NEUROLOGICAL: No obvious deficits. DERMATOLOGIC: No rashes or suspicious lesions in exposed areas. Bruising noted to right AC from blood draws. PSYCHIATRIC: Alert, interactive, appropriate affect.
== END 2020-09-25 12:18 | DRG 463 ==
LOC: KA.ED 14:03 → KA.MS 18:57 → OBSVTOIN 09-24 11:15
PROVIDERS: ADMIT Nurse Practitioner Family; ATTEND Nurse Practitioner Family
DX: N12 Tubulo-interstitial nephritis, not specified as acute or chronic (principal); E87.6 Hypokalemia; E83.42 Hypomagnesemia; R79.89 Other specified abnormal findings of blood chemistry; R19.7 Diarrhea, unspecified; I10 Essential (primary) hypertension; E78.5 Hyperlipidemia, unspecified; E03.9 Hypothyroidism, unspecified; E55.9 Vitamin D deficiency, unspecified; F41.9 Anxiety disorder, unspecified; F32.9 Major depressive disorder, single episode, unspecified; D50.9 Iron deficiency anemia, unspecified; M79.7 Fibromyalgia; N30.10 Interstitial cystitis (chronic) without hematuria; Z20.822 Contact with and (suspected) exposure to COVID-19; Z87.440 Personal history of urinary (tract) infections; Z98.1 Arthrodesis status; Z98.84 Bariatric surgery status; Z79.890 Hormone replacement therapy; Z79.899 Other long term (current) drug therapy; Z88.1 Allergy status to other antibiotic agents; Z88.8 Allergy status to other drugs, medicaments and biological substances; H54.7 Unspecified visual loss; G89.29 Other chronic pain; M54.9 Dorsalgia, unspecified; D51.9 Vitamin B12 deficiency anemia, unspecified; Z90.49 Acquired absence of other specified parts of digestive tract; Z90.89 Acquired absence of other organs; Z98.51 Tubal ligation status; M79.662 Pain in left lower leg; I95.9 Hypotension, unspecified; R01.1 Cardiac murmur, unspecified; D72.0 Genetic anomalies of leukocytes
CPT/HCPCS: 36415; 71045; 71275; 74177; 80048; 80053; 81001; 82150; 83605; 83690; 83735; 84100; 84132; 84145; 84484; 85025; 85379; 86140; 87040; 87086; 87088; 87186; 93005; 96365; 96366; 96367; 96368; 96375; 99284; 99285-25; A9270-GY; J0696; J0744; J1650; J1885; J2405; J3480; J7030; Q9963; Q9967